=== PATIENT | male | born 1940 | race Hispanic/Latino ===

== ENCOUNTER → 2022-02-27 | Outpatient (CLI) | payer OTHER | END | disposition home or self-care (01) | LOC: SHCH 13:25 | PROVIDERS: ATTEND Internal Medicine Cardiovascular Disease | DX: I08.3 Combined rheumatic disorders of mitral, aortic and tricuspid valves (principal); I50.42 Chronic combined systolic (congestive) and diastolic (congestive) heart failure; R94.31 Abnormal electrocardiogram [ECG] [EKG] | CPT/HCPCS: 93306 ==

== ENCOUNTER → 2023-02-20 | Outpatient (CLI) | payer OTHER | END | disposition home or self-care (01) | LOC: SHCH 12:30 | PROVIDERS: ATTEND Internal Medicine Cardiovascular Disease | DX: I08.0 Rheumatic disorders of both mitral and aortic valves (principal) | CPT/HCPCS: 93306 ==

== ENCOUNTER 2023-04-26 22:16 | Observation (INO) | payer OTHER ==
[~2023-04-26] VITALS: Ht 177.8 cm; Wt 80.6 kg
[2023-04-26] MEDS ORDERED: LEVO75CA5 PO (22:38)
[2023-04-26] MEDS ORDERED: METO-408 PO (22:39)
[2023-04-26] MEDS ORDERED: RAMI2.5C55 PO (22:39)
[2023-04-26] MEDS ORDERED: AEC81 PO (22:39)
[2023-04-26] MEDS ORDERED: MEMA10TA55 PO (22:41)
[2023-04-26] MEDS ORDERED: DONE10TA43 PO (22:41)
[2023-04-26] MEDS ORDERED: ALLO100T PO (22:42)
[2023-04-26] MEDS ORDERED: APIX5TAB PO (22:42)
[2023-04-26] MEDS ORDERED: ATOR-2 PO (22:42)
[2023-04-26] MEDS ORDERED: NITR0.4T50 SL (22:43)
[2023-04-26 22:44] LABS: BASOPHILS # (AUTO) 0.03 K/uL (0.00-0.20); BASOPHILS % (AUTO) 0.6 % (0.0-5.0); EOSINOPHILS # (AUTO) 0.05 K/uL (0.00-0.70); EOSINOPHILS % (AUTO) 0.9 % (0.0-8.0); HEMATOCRIT 39.2 % (42-54); IMMATURE GRANULOCYTE ABSOLUTE 0.02 K/uL (0-1); LYMPHOCYTES # (AUTO) 1.1 K/uL (1.0-4.8); LYMPHOCYTES % (AUTO) 20.6 % (21.0-51.0); MEAN CORPUSCULAR HEMOGLOBIN 31.3 pg (27.0-33.0); MEAN CORPUSCULAR HGB CONC 33.2 g/dL (32.0-36.0); MEAN CORPUSCULAR VOLUME 94.5 fL (79-99); MONOCYTES # (AUTO) 0.3 K/uL (0.1-1.0); MONOCYTES % (AUTO) 4.7 % (3.0-13.0); NEUTROPHILS # (AUTO) 3.9 K/uL (1.8-7.7); NEUTROPHILS % (AUTO) 72.8 % (40.0-77.0); PLATELET COUNT (AUTO) 157 K/uL (130-400); RED BLOOD CELL COUNT(AUTO) 4.15 MIL/uL (4.50-6.20); RED CELL DISTRIBUTION WIDTH 14.6 % (11.0-15.5); WHITE BLOOD COUNT (AUTO) 5.3 K/uL (4.8-10.8)
[2023-04-26 22:55] LABS: CREATININE 1.4 mg/dL (0.5-1.5); POTASSIUM 4.5 mmol/L (3.5-5.1)
[2023-04-26 23:00] LABS: BILIRUBIN,TOTAL 2.1 mg/dL (0.2-1.0)
[2023-04-26 23:14] LABS: INR 1.1 (0.85-1.15); PROTHROMBIN TIME 12.7 SEC (9.6-11.6)
[2023-04-26 23:17] LABS: MAGNESIUM 1.9 mg/dL (1.80-2.40)
[2023-04-27] VITALS (9 sets, daily range): BP systolic 120–139; BP diastolic 63–70; PULSE 59–75; RESP 18–19; O2SAT 98
[2023-04-27] MEDS ORDERED: 0.9%NACL 1000ML 1,000 ML IV SCH (00:30)
[2023-04-27] MEDS ORDERED: NITROGLYCERIN 0.4 MG SL TAB SL PRN ×2 (00:30→12:30)
[2023-04-27] MEDS ORDERED: MAGNESIUM 2GM PREMIX 50ML 50 ML IV PRN (00:30)
[2023-04-27] MEDS ORDERED: KCL 20 MEQ ERTAB PO PRN (00:30)
[2023-04-27] MEDS ORDERED: POTASSIUM CHLORIDE 10% ELIXIR 20 MEQ/15 ML UDCUP PO PRN (00:30)
[2023-04-27] MEDS ORDERED: POTASSIUM CHLORIDE 20MEQ/100ML 100 ML IV PRN (00:30)
[2023-04-27] MEDS ORDERED: ONDANSETRON 4MG INJ IV PRN (01:00)
[2023-04-27] MEDS ORDERED: ACETAMINOPHEN 325 MG TAB PO PRN ×2 (01:00)
[2023-04-27 01:38] LABS: APPEARANCE,URINE CLEAR (CLEAR); BILIRUBIN,URINE NEGATIVE (NEGATIVE); COLOR,URINE YELLOW (YELLOW); GLUCOSE, URINE (UA) NEGATIVE (NEGATIVE); KETONES,URINE NEGATIVE (NEGATIVE); LEUKOCYTE ESTERASE ,URINE NEGATIVE Leu/uL (NEGATIVE); NITRATE,URINE NEGATIVE (NEGATIVE); OCCULT BLOOD,URINE NEGATIVE (NEGATIVE); PROTEIN,URINE 10 mg/dL (NEGATIVE); UROBILINOGEN,URINE 0.2 mg/dL (0.2-1.0)
[2023-04-27 01:42] LABS: ADD UA MICROSCOPIC YES
[2023-04-27 01:43] LABS: MUCUS,URINE RARE LPF (None Seen); RBC,URINE 0-1 /HPF (0-1); SQUAMOUS EPITHELIAL CELL,UR RARE /HPF (0-2); WBC,URINE 0-1 /HPF (0-1)
[2023-04-27 04:22] LABS: HEMATOCRIT 37.8 % (42-54); MEAN CORPUSCULAR HEMOGLOBIN 30.7 pg (27.0-33.0); MEAN CORPUSCULAR HGB CONC 32.5 g/dL (32.0-36.0); MEAN CORPUSCULAR VOLUME 94.3 fL (79-99); RED BLOOD CELL COUNT(AUTO) 4.01 MIL/uL (4.50-6.20); RED CELL DISTRIBUTION WIDTH 14.6 % (11.0-15.5); WHITE BLOOD COUNT (AUTO) 4.6 K/uL (4.8-10.8)
[2023-04-27 04:34] LABS: % IRON SATURATION 14.6 % (30-44)
[2023-04-27 04:39] LABS: ALBUMIN 3.7 g/dL (3.5-5.0); BILIRUBIN,TOTAL 1.8 mg/dL (0.2-1.0); CREATININE 1.4 mg/dL (0.5-1.5); POTASSIUM 4.3 mmol/L (3.5-5.1); TOTAL PROTEIN, SERUM 6.6 g/dL (6.0-8.3)
[2023-04-27] MEDS: FAMOTIDINE 20MG TAB PO SCH ×2 (09:07→20:43)
[2023-04-27] MEDS: ASPIRIN 81 MG EC TAB PO SCH (09:07)
[2023-04-27] MEDS: APIXABAN 5 MG TABLET PO SCH (20:43)
[2023-04-27] MEDS: MEMANTINE HCL 5 MG TABLET PO SCH (20:43)
[2023-04-27] MEDS: ALLOPURINOL 100 MG TABLET PO SCH (20:43)
[2023-04-27] MEDS ORDERED: DONEPEZIL HCL 5 MG TAB PO SCH (21:00)
[2023-04-27] MEDS ORDERED: ATORVASTATIN 40 MG TABLET PO SCH (21:00)
[2023-04-28 04:01] VITALS: BP 136/70; PULSE 61; RESP 19
[2023-04-28] MEDS ORDERED: LEVOTHYROXINE 75 MCG TABLET PO SCH (06:30)
[2023-04-28 08:00] VITALS: BP 139/75; PULSE 60; RESP 18; O2SAT 98
[2023-04-28] MEDS ORDERED: ASPIRIN 81 MG EC TAB PO SCH (09:00)
[2023-04-28] MEDS: FAMOTIDINE 20MG TAB PO SCH (09:00)
[2023-04-28] MEDS ORDERED: METOPROLOL SUCCINATE 25 MG TAB.SR.24H PO SCH (09:00)
[2023-04-28] MEDS ORDERED: RAMIPRIL 2.5 MG PO SCH (09:00)
[2023-04-28] MEDS: ALLOPURINOL 100 MG TABLET PO SCH (09:00)
[2023-04-28] MEDS: APIXABAN 5 MG TABLET PO SCH (09:00)
[2023-04-28] MEDS: ASPIRIN 81 MG EC TAB PO SCH (09:00)
[2023-04-28] MEDS: MEMANTINE HCL 5 MG TABLET PO SCH (09:01)
[2023-04-28 12:00] VITALS: BP 148/74; PULSE 72; RESP 18
== END 2023-04-28 15:20 | disposition home or self-care (01) ==
LOC: EDH 22:16 → EDHIP 04-27 00:23 → 4AH 04-27 01:34
PROVIDERS: ADMIT Hospitalist; ATTEND Hospitalist
DX: R07.89 Other chest pain (principal); R55 Syncope and collapse; I10 Essential (primary) hypertension; I25.10 Atherosclerotic heart disease of native coronary artery without angina pectoris; D64.9 Anemia, unspecified; G30.9 Alzheimer's disease, unspecified; F02.80 Dementia in other diseases classified elsewhere, unspecified severity, without behavioral disturbance, psychotic disturbance, mood disturbance, and anxiety; E03.9 Hypothyroidism, unspecified; E78.5 Hyperlipidemia, unspecified; Z95.0 Presence of cardiac pacemaker; Z95.1 Presence of aortocoronary bypass graft; Z95.5 Presence of coronary angioplasty implant and graft; Z79.82 Long term (current) use of aspirin; Z79.899 Other long term (current) drug therapy; Z98.890 Other specified postprocedural states
CPT/HCPCS: 99285; 82550; 83735; 84484 ×4; 80053 ×2; 83880; 85025; 85610; 82948; 71045; 93005; 96365; 96366; 83540; 83550; 85027; 81001; 36415 ×2; G0378 ×39; J3475

== ENCOUNTER → 2023-07-31 | Outpatient (CLI) | payer OTHER ==
[~2023-07-31] VITALS: Ht 180.3 cm; Wt 80.5 kg
[~2023-07-31] MED LIST: AEC81 PO; ALLO100T PO; APIX5TAB PO; ATOR-2 PO; DONE10TA43 PO; LEVO75CA5 PO; MEMA10TA55 PO; METO-408 PO; NITR0.4T50 SL; RAMI2.5C55 PO; TRAM50TA4 PO
[2023-08-05 16:13] VITALS: BP 161/77; PULSE 63; RESP 17
== END | disposition home or self-care (01) ==
LOC: RAH 12:53
PROVIDERS: ATTEND Internal Medicine Cardiovascular Disease
DX: I08.2 Rheumatic disorders of both aortic and tricuspid valves (principal); I42.0 Dilated cardiomyopathy
CPT/HCPCS: 93306

== ENCOUNTER 2023-08-07 07:00 | Day surgery (SDC) | payer OTHER ==
[2023-08-05 15:37] LABS: BASOPHILS # (AUTO) 0.06 K/uL (0.00-0.20); BASOPHILS % (AUTO) 1.3 % (0.0-5.0); EOSINOPHILS # (AUTO) 0.06 K/uL (0.00-0.70); EOSINOPHILS % (AUTO) 1.3 % (0.0-8.0); HEMATOCRIT 42.9 % (42-54); IMMATURE GRANULOCYTE ABSOLUTE 0.02 K/uL (0-1); LYMPHOCYTES # (AUTO) 1.3 K/uL (1.0-4.8); MEAN CORPUSCULAR HEMOGLOBIN 31.3 pg (27.0-33.0); MEAN CORPUSCULAR HGB CONC 32.9 g/dL (32.0-36.0); MEAN CORPUSCULAR VOLUME 95.3 fL (79-99); MONOCYTES # (AUTO) 0.3 K/uL (0.1-1.0); NEUTROPHILS # (AUTO) 2.8 K/uL (1.8-7.7); PLATELET COUNT (AUTO) 198 K/uL (130-400); RED CELL DISTRIBUTION WIDTH 14.6 % (11.0-15.5); WHITE BLOOD COUNT (AUTO) 4.5 K/uL (4.8-10.8)
[2023-08-05 15:43] LABS: CREATININE 1.4 mg/dL (0.5-1.5); POTASSIUM 5.1 mmol/L (3.5-5.1)
[2023-08-05 15:47] LABS: INR 1.14 (0.85-1.15); PROTHROMBIN TIME 13.1 SEC (9.6-11.6)
[2023-08-05 15:48] LABS: PARTIAL THROMBOPLASTIN TIME 32.5 SEC (26.3-35.5)
[2023-08-05 16:13] VITALS: BP 161/77; PULSE 63; RESP 17
[2023-08-07] VITALS (9 sets, daily range): BP systolic 90–127; BP diastolic 45–67; PULSE 63–84; RESP 9–18
[~2023-08-07] VITALS: Ht 180.3 cm; Wt 80.5 kg
[~2023-08-07 07:00] MED LIST changes: -TRAM50TA4 PO
[2023-08-07] MEDS ORDERED: 0.9%NACL 1000ML 1,000 ML IV ONE (07:33)
[2023-08-07] MEDS ORDERED: LIDOCAINE HCL 1% MDV 50ML VIAL ONE (08:24)
[2023-08-07] MEDS ORDERED: BUPIVACAINE/PF 0.25% 30ML VIAL IJ ONE (08:25)
[2023-08-07] MEDS ORDERED: MEPERIDINE-PF 25 MG/ML SYG ONE ×2 (08:25→09:07)
[2023-08-07] MEDS ORDERED: VANCOMYCIN 1G/250ML KIT 500 ML IV ONE (08:25)
[2023-08-07] MEDS ORDERED: MIDAZOLAM HCL 1 MG/ML 2ML VIAL ONE ×2 (08:25→09:08)
[2023-08-07] MEDS ORDERED: IOHEXOL-350 50ML VIAL IV ONE (08:28)
[2023-08-07] MEDS ORDERED: BACITRACIN 1 EACH PACKET TP ONE (09:49)
[2023-08-07] MEDS ORDERED: TRAM50TA4 PO (10:16)
[2023-08-07] MEDS ORDERED: ACETAMINOPHEN 500 MG TABLET PO PRN (10:30)
[2023-08-07] MEDS ORDERED: ACETAMINOPHEN WITH CODEINE 1 TAB TAB PO PRN (10:30)
== END 2023-08-07 14:15 | disposition home or self-care (01) ==
LOC: DAH 07:00
PROVIDERS: ATTEND Internal Medicine Cardiovascular Disease
DX: I48.20 Chronic atrial fibrillation, unspecified (principal); Z83.3 Family history of diabetes mellitus; Z80.9 Family history of malignant neoplasm, unspecified; Z88.0 Allergy status to penicillin; Z72.89 Other problems related to lifestyle; Z79.82 Long term (current) use of aspirin; Z79.899 Other long term (current) drug therapy; Z79.890 Hormone replacement therapy; Z98.890 Other specified postprocedural states
CPT/HCPCS: 80048; 85025; 85610; 85730; 36415; 93005; 33227; C1786; J7030; J0665; J2250 ×2; J3370; J2175 ×2; J3490; A4215; A4222; A4221; A4663; A4216; A4606; A4223 ×3; 99156; 99157; Q9967

== ENCOUNTER → 2024-03-09 | Outpatient (CLI) | payer OTHER ==
[~2024-03-09] MED LIST changes: +MEMA10TA21 PO; -MEMA10TA55 PO; -RAMI2.5C55 PO; +RAMI2.5C57 PO; +TRAM50TA4 PO
== END | disposition home or self-care (01) ==
LOC: SHCH 10:55
PROVIDERS: ATTEND Internal Medicine Cardiovascular Disease
DX: I08.3 Combined rheumatic disorders of mitral, aortic and tricuspid valves (principal); I50.42 Chronic combined systolic (congestive) and diastolic (congestive) heart failure
CPT/HCPCS: 93306

== ENCOUNTER → 2024-11-21 | Outpatient (CLI) | payer OTHER | END | disposition home or self-care (01) | LOC: SHCH 09:45 | PROVIDERS: ATTEND Internal Medicine Cardiovascular Disease | DX: I73.9 Peripheral vascular disease, unspecified (principal); I50.42 Chronic combined systolic (congestive) and diastolic (congestive) heart failure | CPT/HCPCS: 93925 ==